=== PATIENT | male | born 1975 ===

== ENCOUNTER 2017-04-05 12:41 | Emergency (ER) | payer OTHER, SELFPAY ==
[2017-04-05 13:17] VITALS: BP 124/73; PULSE 78; RESP 18; TEMP 97.8; O2SAT 99
--- NOTE | 2017-04-05 13:33 | ED PDOC ---
HPI: Back Time Seen by Provider: 04/05/17 13:20 Chief Complaint (Nursing): Back Pain History Per: Patient History/Exam Limitations: no limitations Onset/Duration Of Symptoms: Gradual (1 week ago ) Current Symptoms Are (Timing): Still Present Previous Symptoms: Back Pain Associated Symptoms: None Exacerbating Factor(s): Movement Additional Complaint(s): 04/05/2017 Gm Rowell is a 41 y/o male, who presents to the ED complaining of back pain for one week. 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 Patient reports it is worse with exacerbation. He also notes trying exercises for pain relief and taking Advil, but no significant relief was made. Patient denies any fall, trauma, chest pain , shortness of breath, bowel or bladder incontinence/retention, saddle anesthesia, paresthesias, focal weakness, sensory deficit, gait dysfunction, hematuria or dysuria. No radiation of pain into lower extremities. Past Medical History Reviewed: Historical Data, Nursing Documentation, Vital Signs Vital Signs: Last Vital Signs Temp 97.8 F 04/05/17 13:15 Pulse 78 04/05/17 13:15 Resp 18 04/05/17 13:15 BP 124/73 04/05/17 13:15 Pulse Ox 99 04/05/17 13:15 - Family History Family History: States: No Known Family Hx - Home Medications Home Medications: Ambulatory Orders Medication Instructions Recorded Erythromycin Base [Erythromycin] 1 applic OD QID #1 11/23/15 Naproxen 1 tab PO Q12 PRN #14 tab 04/05/17 diaZEpam [Valium] 5 mg PO Q6 PRN #5 tab 04/05/17 - Allergies Allergies/Adverse Reactions: Allergies Allergy/AdvReac Type Severity Reaction Status Date / Time No Known Allergies Allergy Verified 11/23/15 08:50 Review of Systems Constitutional: Negative for: Fever Cardiovascular: Negative for: Chest Pain Respiratory: Negative for: Shortness of Breath Genitourinary Male: Negative for: Dysuria, Frequency, Incontinence Musculoskeletal: Positive for: Back Pain Neurological: Negative for: Headache Physical Exam - Reviewed Nursing Documentation Reviewed: Yes Vital Signs Reviewed: Yes - Physical Exam Appears: Positive for: Well, Non-toxic, No Acute Distress Skin: Positive for: Normal Color, Warm, DRY Back: Positive for: Other (paralumbar tenderness) Neurologic/Psych: Positive for: Alert, Oriented - ECG O2 Sat by Pulse Oximetry: 99 Medical Decision Making Medical Decision Makin04/05/2017 Impression: 41 y/o male with paralumbar tenderness Plan: -- Toradol -- Reassess and disposition Scribe Attestation: Documented by Fara Villeda, acting as a scribe for Torres Hernández PA-C Provider Scribe Attestation: All medical record entries made by the Scribe were at my direction and personally dictated by me. I have reviewed the chart and agree that the record accurately reflects my personal performance of the history, physical exam, medical decision making, and the department course for this patient. I have also personally directed, reviewed, and agree with the discharge instructions and disposition. Disposition - Clinical Impression Clinical Impression: Back strain - Patient ED Disposition Is Patient to be Admitted: No - Disposition Disposition: Routine/Home Disposition Time: 14:50 Condition: FAIR Prescriptions: diaZEpam [Valium] 5 mg PO Q6 PRN #5 tab PRN Reason: Muscle Spasm Naproxen 1 tab PO Q12 PRN #14 tab PRN Reason: Pain, Moderate (4-7) Instructions: Hamstring Injury (ED), Acute Low Back Pain (ED), Core Strengthening Exercises (GEN) Forms: [place] (Croatian), [facility] ED School/Work Excuse Print Language: ICELANDIC
== END 2017-04-05 14:51 | disposition home or self-care (01) ==
LOC: H.ER 12:41
DX: S39.012A Strain of muscle, fascia and tendon of lower back, initial encounter (principal); X50.0XXA Overexertion from strenuous movement or load, initial encounter; Y93.H3 Activity, building and construction; Y92.89 Other specified places as the place of occurrence of the external cause; Y99.0 Civilian activity done for income or pay
CPT/HCPCS: 96372; 99282; J1885

== ENCOUNTER 2017-09-29 10:38 | Emergency (ER) | payer SELFPAY ==
[2017-09-29 10:46] VITALS: TEMP 97.3
[2017-09-29] MEDS ORDERED: Polymyxin/Trimethoprim Ophth Soln OD STA (12:05)
--- NOTE | 2017-09-29 12:10 | ED PDOC ---
HPI: Eye Injury/Pain Additional Complaint(s): 41yo M with no PMHx c/o right eye pain. Trauma to right eye yesterday after ceiling tile left on right eye. Though it would improve, pain continued and came to ED today. Denies vision change, flashing light, loss of vision, color change. Right eye pain with blinking. No pain with moving eye around. PCP: SHAREE <Evelyn Mello - Last Filed: 09/29/17 12:32> <Compa Wright III - Last Filed: 09/29/17 12:44> Time Seen by Provider: 09/29/17 11:03 Chief Complaint (Nursing): Eye Problem Supervising Attending Note - Attestation: I have personally seen and examined this patient.: Yes I have fully participated in the care of the patient.: Yes I have reviewed all pertinent clinical information, including history, physical exam and plan: Yes - Notes: Notes:: pt seen and examined w resident small uptake on flurosceib stain, no clouding of cornea flush extensively w sterile saline and rx polytrim given bottle and instructions for use, mandatory followup ophtho <Compa Wright III - Last Filed: 09/29/17 12:44> Past Medical History Reviewed: Historical Data, Nursing Documentation, Vital Signs Vital Signs: Last Vital Signs Temp 97.3 F L 09/29/17 10:55 Pulse 64 09/29/17 10:55 Resp 18 09/29/17 10:55 BP 117/68 09/29/17 10:55 Pulse Ox 100 09/29/17 10:55 - Medical History PMH: No Chronic Diseases - Surgical History Surgical History: No Surg Hx - Family History Family History: States: No Known Family Hx - Social History Current smoker - smoking cessation education provided: No Alcohol: None Drugs: Denies <Evelyn Mello - Last Filed: 09/29/17 12:32> Vital Signs: Last Vital Signs Temp 97.3 F L 09/29/17 10:55 Pulse 64 09/29/17 10:55 Resp 18 09/29/17 10:55 BP 117/68 09/29/17 10:55 Pulse Ox 100 09/29/17 12:32 <Compa Wright III - Last Filed: 09/29/17 12:44> - Home Medications Home Medications: Ambulatory Orders Medication Instructions Recorded Erythromycin Base [Erythromycin] 1 applic OD QID #1 11/23/15 Naproxen 1 tab PO Q12 PRN #14 tab 04/05/17 diaZEpam [Valium] 5 mg PO Q6 PRN #5 tab 04/05/17 - Allergies Allergies/Adverse Reactions: Allergies Allergy/AdvReac Type Severity Reaction Status Date / Time No Known Allergies Allergy Verified 09/29/17 10:55 Review of Systems ROS Statement: Except As Marked, All Systems Reviewed And Found Negative Eyes: Positive for: Pain <Evelyn - Last Filed: 09/29/17 12:32> Physical Exam - Reviewed Nursing Documentation Reviewed: Yes Vital Signs Reviewed: Yes - Physical Exam Appears: Positive for: Well, Non-toxic Head Exam: Positive for: ATRAUMATIC, NORMAL INSPECTION Skin: Positive for: Warm, Dry Eye Exam: Positive for: EOMI, PERRL, Other (visual acuity 20/20 b/l. florescein stain showing uptake in 4-6 o'clock position. No foreign body identified). Negative for: Nystagmus, Periorbital swelling, Periorbital tenderness, Conjunctival injection, Scleral icterus Neck: Positive for: Normal, Painless ROM, Supple Cardiovascular/Chest: Positive for: Regular Rate, Rhythm, Chest Non Tender Respiratory: Positive for: Normal Breath Sounds. Negative for: Decreased Breath Sounds Gastrointestinal/Abdominal: Positive for: Soft Back: Positive for: Normal Inspection Extremity: Positive for: Normal ROM Lymphatic: Negative for: Adenopathy Neurologic/Psych: Positive for: Alert, Oriented <Evelyn Mello - Last Filed: 09/29/17 12:32> - ECG O2 Sat by Pulse Oximetry: 100 <Evelyn - Last Filed: 09/29/17 12:32> Medical Decision Making Medical Decision Makin DDx corneal abrasion, foreign body in eye visual acuity 20/20 b/l florescein stain showing uptake in 4-6 o'clock position flushed right eye with 250cc NS polytrim drop applied d/c home, FU optho <Anirudh Mellog - Last Filed: 09/29/17 12:32> Disposition - Disposition Disposition Time: 12:14 <Evelyn - Last Filed: 09/29/17 12:32> <Compa Wright III - Last Filed: 09/29/17 12:44> - Clinical Impression Clinical Impression: Sensation of foreign body in eye, Corneal abrasion, right - Disposition Referrals: [facility] [Outside] Isaac Power MD [Staff Provider] - Condition: STABLE Additional Instructions: Polytrim, 1 drop to right eye, 4 times per day Instructions: Corneal Abrasion (DC) Forms: [facility] (Turkish), [facility] ED School/Work Excuse Print Language: IRAQI
[2017-09-29 12:52] VITALS: BP 120/70; PULSE 70; RESP 16; O2SAT 99
== END 2017-09-29 12:52 | disposition home or self-care (01) ==
LOC: H.ER 10:38
DX: S05.01XA Injury of conjunctiva and corneal abrasion without foreign body, right eye, initial encounter (principal); W22.8XXA Striking against or struck by other objects, initial encounter; Y92.89 Other specified places as the place of occurrence of the external cause